=== PATIENT | female | born 1995 | race Caucasian/White ===

== ENCOUNTER 2020-08-21 16:28 | Emergency (ER) | payer SELFPAY ==
[~2020-08-21] VITALS: Ht 160 cm; Wt 53.5 kg
--- NOTE | 2020-08-21 16:51 | NUR ---
BIBS WITH BOYFRIEND. TO ER BED 7. AAOX4. NOT IN RESP DISTRESS. AMBULATORY. CAME IN FOR R FLANK PAIN SINCE YESTERDAY. PT REPROTS THAT PAIN RADIATES TO HER RLQ ABD WELLAS TO THE LEFT FLANK. PAIN IS RATE 10/10 SHARP. +NAUSEA BUT DENEIS VOMMTING AND DIARRHEA. URINE COLLECTED AND SENT TO LAB. WAS AT THE BEDSIDE FOR EVAL. ORDERS RECEIVED, NOTD AND CARRIED OUT. IV LINE ESTABLISHED ON L WRIST 20G, BLOOD DRAWN AND GIVEN TO PHLEB AT BEDSIDE.
[2020-08-21] MEDS ORDERED: IV NS 0.9% 1,000 ML IV ONE ×2 (17:00→19:30)
[2020-08-21] MEDS ORDERED: MORPHINE SULFATE INJ 2 MG/ML DISP.SYRIN IV ONE ×2 (17:00→19:30)
[2020-08-21] MEDS ORDERED: ONDANSETRON HCL/PF - ER 4 MG/2 ML VIAL IV ONE (17:00)
[2020-08-21 17:08] LABS: BASOPHILS # (AUTO) 0.1 /CMM (0.0-0.2); BASOPHILS % (AUTO) 0.6 % (0.0-2.0); EOSINOPHILS % (AUTO) 0.1 % (0.0-6.0); HEMATOCRIT 39 % (33-45); HEMOGLOBIN 13.3 g/dL (11.5-14.8); LYMPHOCYTES # (AUTO) 0.6 /CMM (0.8-4.8); LYMPHOCYTES % (AUTO) 5.6 % (20.0-44.0); MEAN CORPUSCULAR HGB CONC 34 g/dl (31.0-36.0); MEAN CORPUSCULAR VOLUME 90 fL (82-100); MONOCYTES # (AUTO) 1.1 /CMM (0.1-1.30); MONOCYTES % (AUTO) 9.4 % (2.0-12.0); NEUTROPHILS # (AUTO) 9.7 /CMM (1.8-8.9); NEUTROPHILS % (AUTO) 84.3 % (43.0-81.0); PLATELET COUNT (AUTO) 173 /CMM (150-450); RED BLOOD CELL COUNT(AUTO) 4.34 MIL/uL (4.0-5.2); WHITE BLOOD COUNT (AUTO) 11.5 K/uL (4.3-11.0)
[2020-08-21] MEDS ORDERED: ONDANSETRON HCL/PF 4 MG/2 ML VIAL ONE (17:08)
[2020-08-21] MEDS ORDERED: MORPHINE SULFATE INJ 2 MG/ML DISP.SYRIN ONE ×2 (17:08→19:27)
[2020-08-21 17:29] LABS: CALCIUM, SERUM 8.8 mg/dL (8.5-10.1); POTASSIUM 3.5 mmol/L (3.5-5.1)
[2020-08-21 17:41] LABS: ALBUMIN 4.1 g/dL (3.4-5.0); BILIRUBIN,DIRECT 0.4 mg/dL (0.0-0.2); BILIRUBIN,TOTAL 1.9 mg/dL (0.2-1.0); TOTAL PROTEIN, SERUM 7.6 g/dL (6.4-8.2)
--- NOTE | 2020-08-21 18:20 | NUR ---
BACK FROM CT
--- NOTE | 2020-08-21 18:24 | NUR ---
URINE RESENT. NOT ENOUGH URINE ON FIRST COLLECTION
[2020-08-21 18:42] LABS: BILIRUBIN,URINE Negative (NEGATIVE); COLOR,URINE YELLOW (YELLOW); LEUKOCYTE ESTERASE ,URINE Moderate (NEGATIVE); NITRITE, URINE Negative (NEGATIVE); PH,URINE 6.5 (5.0-8.0); PROTEIN,URINE Negative (NEGATIVE); UGLUCOSE Negative (NEGATIVE); UROBILINOGEN,URINE 0.2 EU/dL (0.2)
[2020-08-21 18:53] LABS: BACTERIA,URINE 2+ /HPF (None Seen); RBC,URINE 21-50 /HPF (0-2); SQUAMOUS EPITHELIAL CELL,UR Few /HPF (None Seen); WBC,URINE 21-50 /HPF (0-3)
[2020-08-21] MEDS ORDERED: LEVO750T46 PO (19:18)
[2020-08-21] MEDS ORDERED: IBUP-1955 PO (19:18)
[2020-08-21] MEDS ORDERED: KETOROLAC TROMETHAMINE 15 MG/ML VIAL ONE (19:27)
[2020-08-21] MEDS ORDERED: CEFTRIAXONE 1GM BAG (ER ONLY) 50 ML IV ONE (19:27)
[2020-08-21] MEDS ORDERED: CEFTRIAXONE 1 G in IV D5W 50 ML IV ONE (19:30)
[2020-08-21] MEDS ORDERED: KETOROLAC TROMETHAMINE INJ 30 MG/ML VIAL IV ONE (19:30)
--- NOTE | 2020-08-21 19:35 | NUR ---
PT WAS NOTED WITH A REDNESS AND ITCHING ON HER L FOREARM EXTENDING TO THE AC AREA WHERE SHE IS RECEIVING ROCEPHINE IV. IV WAS STOPPED. MD MADE AWARE AND VERBAL ORDER RECEIVED TO GIVE BENADRYL 50MG IV X 1. NOTED AND CARRIED OUT
[2020-08-21] MEDS ORDERED: diphenhydrAMINE HCL 50 MG/ML VIAL ONE (19:36)
[2020-08-21] MEDS ORDERED: LEVOFLOXACIN 750 MG /D5W 150ML 150 ML IV ONE (19:45)
--- NOTE | 2020-08-21 19:55 | NUR ---
NEW IV LINE STARTED ON R AC 20G AND RECEIVED ORDER TO GIVE LEVAQUIN INSTEAD OF ROCEPHIN.
[2020-08-21] MEDS ORDERED: diphenhydrAMINE HCL 50 MG/ML VIAL IV ONE (20:00)
[2020-08-21] MEDS ORDERED: LEVOFLOXACIN 750 MG /D5W 150ML PIGGYBACK IV ONE (20:00)
--- NOTE | 2020-08-21 20:02 | NUR ---
PT MARKED FOR DISCHARGE BUT PT IS STILL RECEIVING IV LEVAQUIN AND WILL END @ 2126.
--- NOTE | 2020-08-21 21:25 | NUR ---
levaquin infusion completed w/o noting any reaction from the antibiotic. redness and itching on the other arm have subsided and itching is gone after receiving Benadryl. Pt is going to be taken home by her boyfriend
--- NOTE | 2020-08-21 21:26 | NUR ---
Patient discharged to home in stable condition. Written and verbal after care instructions given. Patient verbalizes understanding of instruction.IV removed. Catheter intact and site benign. Pressure and 4x4 applied to site. No bleeding noted. Pt ambulatory with a steady gait
[2020-08-21 21:27] VITALS: BP 128/76
== END 2020-08-21 21:27 | disposition home or self-care (01) ==
LOC: ER 16:28
DX: N12 Tubulo-interstitial nephritis, not specified as acute or chronic (principal); R79.89 Other specified abnormal findings of blood chemistry; E86.0 Dehydration; J45.909 Unspecified asthma, uncomplicated; F41.9 Anxiety disorder, unspecified; E03.9 Hypothyroidism, unspecified; Z79.899 Other long term (current) drug therapy
CPT/HCPCS: 36415; 71250; 74176; 76705; 80048; 80076; 81001; 83690; 84702; 85025; 87086; 96361; 96365; 96368; 96375; 96376; 99285; J0696; J1200; J1885; J1956; J2270 ×2; J2405 ×2; J7030 ×2; 87186-TC

== ENCOUNTER 2020-11-24 11:01 | Emergency (ER) | payer BC ==
[~2020-11-24] VITALS: Ht 160 cm; Wt 48.5 kg
[~2020-11-24 11:01] MED LIST: IBUP-1955 PO; LEVO750T46 PO
--- NOTE | 2020-11-24 11:15 | NUR ---
TO ER BED 4, C/O BACK PAIN, STOMACH PAIN, HEADACHE SINCE LAST FRIDAY, UNABLE TO STAY UP DUE TO PAIN, ATTACHED TO MONITOR AND MD ERNESTO AT BEDSIDE.
[2020-11-24] MEDS ORDERED: IV NS 0.9% 1,000 ML BAG IV ONE (11:30)
[2020-11-24 11:47] LABS: BILIRUBIN,URINE SMALL (NEGATIVE); COLOR,URINE YELLOW (YELLOW); LEUKOCYTE ESTERASE ,URINE Trace (NEGATIVE); NITRITE, URINE Negative (NEGATIVE); PROTEIN,URINE 100 mg/dl (NEGATIVE); UGLUCOSE Negative (NEGATIVE)
[2020-11-24 11:57] LABS: BASOPHILS % (AUTO) 1.5 % (0.0-2.0); EOSINOPHILS % (AUTO) 0.2 % (0.0-6.0); HEMATOCRIT 43 % (33-45); HEMOGLOBIN 14.3 g/dL (11.5-14.8); LYMPHOCYTES # (AUTO) 0.8 K/uL (0.8-4.8); LYMPHOCYTES % (AUTO) 32.5 % (20.0-44.0); MEAN CORPUSCULAR HGB CONC 34 g/dl (31.0-36.0); MEAN CORPUSCULAR VOLUME 90 fL (82-100); MONOCYTES # (AUTO) 0.2 K/uL (0.1-1.30); MONOCYTES % (AUTO) 10.3 % (2.0-12.0); NEUTROPHILS # (AUTO) 1.3 K/uL (1.8-8.9); NEUTROPHILS % (AUTO) 55.5 % (43.0-81.0); PLATELET COUNT (AUTO) 101 K/uL (150-450); RED BLOOD CELL COUNT(AUTO) 4.75 MIL/uL (4.0-5.2); WHITE BLOOD COUNT (AUTO) 2.4 K/uL (4.3-11.0)
[2020-11-24 12:04] LABS: CALCIUM, SERUM 8.6 mg/dL (8.5-10.1); CREATININE 0.9 mg/dL (0.6-1.3); POTASSIUM 3.7 mmol/L (3.5-5.1)
--- NOTE | 2020-11-24 12:04 | NUR ---
COVID TESTS SENT TO [facility]
[2020-11-24 12:11] LABS: ALBUMIN 3.8 g/dL (3.4-5.0); BILIRUBIN,DIRECT 0.1 mg/dL (0.0-0.2); BILIRUBIN,TOTAL 0.3 mg/dL (0.2-1.0); TOTAL PROTEIN, SERUM 7.7 g/dL (6.4-8.2)
[2020-11-24 12:11] LABS: BACTERIA,URINE Few /HPF (None Seen); SQUAMOUS EPITHELIAL CELL,UR Many /HPF (None Seen)
--- NOTE | 2020-11-24 12:19 | NUR ---
RADIOLOGY AT BEDSIDE
[2020-11-24] MEDS ORDERED: IBUPROFEN 600 MG TABLET PO ONE (12:30)
[2020-11-24] MEDS ORDERED: IBUPROFEN 600 MG TABLET ONE (12:40)
[2020-11-24 13:17] VITALS: BP 109/65
[2020-11-24] MEDS ORDERED: DOXYCYCLINE HYCLATE (100 MG) 100 MG TABLET PO ONE (13:30)
[2020-11-24] MEDS ORDERED: DOXY-226 PO (13:36)
[2020-11-24] MEDS ORDERED: DOXYCYCLINE HYCLATE (100 MG) 100 MG TABLET ONE (13:45)
[2020-11-24 15:48] LABS: BAND % (MANUAL) 4 % (0.0-5.0); EOSINOPHILS % (MANUAL) 1 % (0-4); LYMPHOCYTES % (MANUAL) 26 % (16-48); MONOCYTES % (MANUAL) 5 % (0-11.0); NEUTROPHILS % (MANUAL) 64 (42-76)
== END 2020-11-24 13:52 | disposition home or self-care (01) ==
LOC: ER 11:06
DX: U07.1 COVID-19 (principal); J12.82 Pneumonia due to coronavirus disease 2019; R11.0 Nausea; J45.909 Unspecified asthma, uncomplicated; F41.9 Anxiety disorder, unspecified; E03.9 Hypothyroidism, unspecified; Z79.890 Hormone replacement therapy
CPT/HCPCS: 36415; 71045; 80048; 80076; 81001; 83690; 84703; 85007; 85025; 87086; 87426; 96360; 99284; C9803; J7030; U0003

== ENCOUNTER 2021-03-16 22:54 | Emergency (ER) | payer BC ==
[~2021-03-16] VITALS: Ht 160 cm; Wt 50.8 kg
[~2021-03-16 22:54] MED LIST changes: +DOXY-226 PO
[2021-03-16] MEDS ORDERED: ONDANSETRON HCL/PF 4 MG/2 ML VIAL ONE (23:25)
[2021-03-16] MEDS ORDERED: diphenhydrAMINE HCL 50 MG/ML VIAL ONE (23:25)
[2021-03-16] MEDS ORDERED: FAMOTIDINE/PF INJ 20 MG/2 ML VIAL IV ONE ×3 (23:26→23:30)
[2021-03-16] MEDS ORDERED: diphenhydrAMINE HCL 50 MG/ML VIAL IV ONE (23:30)
[2021-03-16] MEDS ORDERED: IV NS 0.9% 1,000 ML BAG IV ONE (23:30)
[2021-03-16] MEDS ORDERED: ONDANSETRON HCL/PF 4 MG/2 ML VIAL IVP ONE (23:30)
--- NOTE | 2021-03-16 23:30 | NUR ---
BIB SELF C/O ALLERGIC REACTION TO UNKNOWN SUBSTANCE. PT STATES REACTION BEGAN ON 03/05 AND HAS PROGRESSIVELY WORSTENED DESPITE TAKING BENADRYL. PT PRESENTS WITH PERIORBITAL SWELLING TO BOTH EYES AND JAW WELL HIVES AND ITCHING TO LOWER EXTREMITIES. PT DENIES SOB, BREATH SOUNDS CLEAR BILATERALLY, BREATHING EVEN AND UNLABORED. PT PLACED ON MONITOR AND PULSE OX O2 SAT 99% RA. MD WAS AT THE BEDSIDE FOR EVAL.
--- NOTE | 2021-03-17 00:33 | NUR ---
Patient discharged to home in stable condition. Written and verbal after care instructions given. Patient verbalizes understanding of instruction.
[2021-03-17 00:53] VITALS: BP 122/68
== END 2021-03-17 00:33 | disposition home or self-care (01) ==
LOC: ER 22:58
DX: R21 Rash and other nonspecific skin eruption (principal); T38.0X5A Adverse effect of glucocorticoids and synthetic analogues, initial encounter; J45.909 Unspecified asthma, uncomplicated; F41.9 Anxiety disorder, unspecified; E03.9 Hypothyroidism, unspecified; Z60.2 Problems related to living alone; Y92.89 Other specified places as the place of occurrence of the external cause
CPT/HCPCS: 96361; 96374; 96375; 99284; J1200; J2405; J3490 ×2; J7030